=== PATIENT | female | born 1930 | race Caucasian/White ===

== ENCOUNTER 2017-11-10 07:29 | Emergency (ER) | payer OTHER ==
[~2017-11-10] VITALS: Ht 160 cm; Wt 66.9 kg
[~2017-11-10 07:29] MED LIST: ATIVAN1 MG PO; Ascorbic Acid,Ester- PO; BUSPAR5 MG PO; CELEBREX200 MG PO; Dulcolax PO; Dulcolax PR; ESCITALOPRAM OX10 MG PO; FLONASE16 G1 BOTH NARES; Folvite PO; LIDODERM 5% P1 PATCH TD; LISINOPRIL10 MG PO; Levothroid,Synthroid PO; Lovenox SC; MIRALAX17 GM PO; Milk Of Magnesia,MOM PO; NIFEREX-1501 CAPSULE PO; OMEPRAZOLE40 M1 PO; PRAVASTATIN SOD40 MG PO; Protonix PO; SYNTHROID88 MCG PO; Senokot S,Pericolace PO; TYLENOL REGULA325 MG PO; Theragran PO; Tums,OsCal PO; Vitamin D PO; Zestril,Prinivil PO; Zocor PO
[2017-11-10 11:54] VITALS: BP 152/58
== END 2017-11-10 11:57 | disposition home or self-care (01) ==
LOC: EME 07:29
DX: S00.93XA Contusion of unspecified part of head, initial encounter (principal); W18.30XA Fall on same level, unspecified, initial encounter; Y92.099 Unspecified place in other non-institutional residence as the place of occurrence of the external cause; I10 Essential (primary) hypertension; K21.9 Gastro-esophageal reflux disease without esophagitis; F32.9 Major depressive disorder, single episode, unspecified; E03.9 Hypothyroidism, unspecified; F41.9 Anxiety disorder, unspecified
CPT/HCPCS: 70450; 99281; 99284

== ENCOUNTER 2018-05-02 12:08 | Day surgery (SDC) | payer OTHER ==
[~2018-05-02] VITALS: Ht 160 cm; Wt 85.2 kg
[~2018-05-02 12:08] MED LIST changes: +BUSPAR10 MG PO; +CALCITONIN-SAL3.8 ML ALT NARES; +CALCIUM 600 +1 EAC2 PO; +IRON325 M1 PO; +LASIX20 MG PO; +LISINOPRIL-HCT1 EACH PO; +LOVENOX30 MG/0.3 SC; +TYLENOL EXTRA500 MG PO; +ULTRAM50 MG PO; +WELLBUTRIN SR100 MG PO; +[UNRECOGNIZED DRUG - OTHER] TP
[2018-05-02 13:31] VITALS: BP 124/66
[2018-05-02 17:07] VITALS: BP 146/70
[2018-05-02 18:00] VITALS: BP 126/60
[2018-05-02 18:30] VITALS: BP 130/60
== END 2018-05-02 18:55 | disposition home or self-care (01) ==
LOC: SDC 12:08
PROC: 0QSG04Z Reposition Right Tibia with Internal Fixation Device, Open Approach (ICD-10-PCS; principal; 2018-05-02)
DX: S82.841A Displaced bimalleolar fracture of right lower leg, initial encounter for closed fracture (principal); W06.XXXA Fall from bed, initial encounter; I10 Essential (primary) hypertension; Z79.01 Long term (current) use of anticoagulants; Z88.2 Allergy status to sulfonamides; Z91.012 Allergy to eggs
CPT/HCPCS: 71045; 73610; 76000; 87641; 93005; C1713; J0131; J0690; J2405; J2795; J3010; S0020

== ENCOUNTER 2018-05-05 14:33 | Observation (INO) | payer OTHER ==
[~2018-05-05] VITALS: Ht 157.5 cm; Wt 70.6 kg
[2018-05-05 15:43] LABS: HEMATOCRIT 35.5 % (36.0-46.0); HEMOGLOBIN 11.6 G/DL (11.9-15.5); MCH 32.8 PG (29.0-34.0); MCHC 32.7 G/DL (30.0-36.0); MCV 100.3 FL (83-99); PLATELET COUNT 215 K/uL (156-360); RBC DIS.WIDTH-CV 13.2 % (11.8-14.6); RBC DIS.WIDTH-SD 48.9 % (39-53); RED BLOOD COUNT 3.54 M/uL (3.80-5.20); WHITE BLOOD COUNT 8.8 K/uL (4.1-10.2)
[2018-05-05 15:57] LABS: CHLORIDE 101 mEq/L (99-109); POTASSIUM 4.2 mEq/L (3.7-5.4); SODIUM 140 mEq/L (136-147)
[2018-05-05 15:59] LABS: GLUCOSE 123 mg/dL (70-99)
[2018-05-05 16:02] LABS: TROP-I INTERPRETATION NEGATIVE; TROPONIN-I 0.02 ng/mL (0.0-0.30)
[2018-05-05 16:03] LABS: CREATININE 1.5 mg/dL (0.6-1.3); GFR ESTIMATE (CALCULATED) 35 mL/min/
[2018-05-05 16:04] LABS: UREA NITROGEN (BUN) 47 mg/dL (9-23)
[2018-05-05 18:13] LABS: APPEARANCE SL.HAZY ((CLEAR)); BILIRUBIN NEGATIVE; BLOOD NEGATIVE; COLOR YELLOW ((YELLOW)); GLUCOSE (STRIP) NEGATIVE; KETONES NEGATIVE; LEUKOCYTES MODERATE; NITRITE NEGATIVE; PROTEIN (STRIP) NEGATIVE; SPECIFIC GRAVITY 1.023 (1.000-1.030); UROBILINOGEN 0.2 MG/DL (0.2-1.0)
[2018-05-05] MEDS ORDERED: FERROUS SULFAT325 MG PO (18:27)
[2018-05-05] MEDS ORDERED: LOVENOX30 MG/0.3 SC (18:33)
[2018-05-05 18:36] LABS: BACTERIA 1+ /HPF; EPITHELIAL CELLS 2+ /HPF; MUCUS TRACE /LPF; UCUL ADDED? NO; WHITE BLOOD CELLS 0-5 /HPF (0-5)
[2018-05-05 22:43] VITALS: BP 112/58
[2018-05-05 22:57] LABS: TROP-I INTERPRETATION NEGATIVE; TROPONIN-I 0.01 ng/mL (0.0-0.30)
[2018-05-06 03:55] VITALS: BP 92/53
[2018-05-06 05:38] LABS: HEMATOCRIT 30.5 % (36.0-46.0); HEMOGLOBIN 9.7 G/DL (11.9-15.5); MCHC 31.8 G/DL (30.0-36.0); MCV 100.7 FL (83-99); PLATELET COUNT 192 K/uL (156-360); RBC DIS.WIDTH-CV 13.3 % (11.8-14.6); RED BLOOD COUNT 3.03 M/uL (3.80-5.20); WHITE BLOOD COUNT 7.7 K/uL (4.1-10.2)
[2018-05-06 05:49] LABS: TROP-I INTERPRETATION NEGATIVE; TROPONIN-I < 0.01 ng/mL (0.0-0.30)
[2018-05-06 05:53] LABS: CHLORIDE 105 MEQ/L (99-109); CREATININE 1.2 MG/DL (0.6-1.3); GFR ESTIMATE (CALCULATED) 45 mL/min/; GLUCOSE 121 mg/dL (70-99); SODIUM 141 MEQ/L (136-147); UREA NITROGEN (BUN) 41 mg/dL (9-23)
[2018-05-06 11:13] VITALS: BP 113/57
[2018-05-06 15:20] VITALS: BP 116/60
[2018-05-06 20:15] VITALS: BP 100/56
== END 2018-05-06 20:19 | disposition home or self-care (01) ==
LOC: EME 14:33 → EDOF 18:36 → ENRESERV 18:53 → 4SOUTH 21:54
PROVIDERS: Emergency Medicine; Hospitalist
DX: N17.9 Acute kidney failure, unspecified (principal); D64.9 Anemia, unspecified; R79.1 Abnormal coagulation profile; E86.0 Dehydration; N39.0 Urinary tract infection, site not specified; Z98.890 Other specified postprocedural states; S82.841D Displaced bimalleolar fracture of right lower leg, subsequent encounter for closed fracture with routine healing; K44.9 Diaphragmatic hernia without obstruction or gangrene; I10 Essential (primary) hypertension; E78.5 Hyperlipidemia, unspecified; F41.9 Anxiety disorder, unspecified; E03.9 Hypothyroidism, unspecified; K21.9 Gastro-esophageal reflux disease without esophagitis; R91.8 Other nonspecific abnormal finding of lung field; R26.89 Other abnormalities of gait and mobility; Z79.82 Long term (current) use of aspirin; Z79.01 Long term (current) use of anticoagulants; M19.90 Unspecified osteoarthritis, unspecified site; Z82.49 Family history of ischemic heart disease and other diseases of the circulatory system; Z91.012 Allergy to eggs
CPT/HCPCS: 71045; 71250; 78582; 80048; 81003; 84484; 85027; 85379; 93005; 99281; 99285; A9539; A9540; G0378; J1650; J7030

== ENCOUNTER 2018-05-10 10:43 | Inpatient (IN) | payer OTHER ==
[~2018-05-10] VITALS: Ht 167.6 cm; Wt 75.6 kg
[~2018-05-10 10:43] MED LIST changes: +FERROUS SULFAT325 MG PO
[2018-05-10 13:15] LABS: BASOPHIL (%) 0.4 % (0-1); BASOPHIL COUNT 0.1 K/uL (0-0.1); EOSINOPHIL (%) 0.9 % (0-5); EOSINOPHIL COUNT 0.1 K/uL (0-0.3); HEMATOCRIT 32.6 % (36.0-46.0); HEMOGLOBIN 10.6 G/DL (11.9-15.5); IMMATURE GRANULOCYTE (%) 0.9 % (0.0-0.7); LYMPHOCYTE (%) 10.3 % (15-42); LYMPHOCYTE COUNT 1.3 K/uL (1.0-2.8); MCH 32.5 PG (29.0-34.0); MCHC 32.5 G/DL (30.0-36.0); MONOCYTE (%) 7.7 % (3-12); NEUTROPHIL (%) 79.8 % (45-76); NEUTROPHIL COUNT 10.3 K/uL (1.8-6.4); RBC DIS.WIDTH-CV 13.6 % (11.8-14.6); RED BLOOD COUNT 3.26 M/uL (3.80-5.20); WHITE BLOOD COUNT 12.9 K/uL (4.1-10.2)
[2018-05-10 13:17] LABS: PLATELET COUNT 260 K/uL (156-360)
[2018-05-10 13:28] LABS: CHLORIDE 102 mEq/L (99-109); SODIUM 138 mEq/L (136-147)
[2018-05-10 13:29] LABS: GLUCOSE 109 mg/dL (70-99)
[2018-05-10 13:33] LABS: CREATININE 3.2 mg/dL (0.6-1.3); GFR ESTIMATE (CALCULATED) 15 mL/min/
[2018-05-10 13:34] LABS: UREA NITROGEN (BUN) 73 mg/dL (9-23)
[2018-05-10 14:46] LABS: APPEARANCE CLEAR ((CLEAR)); BILIRUBIN NEGATIVE; BLOOD SMALL; COLOR YELLOW ((YELLOW)); GLUCOSE (STRIP) NEGATIVE; KETONES NEGATIVE; LEUKOCYTES NEGATIVE; NITRITE NEGATIVE; PROTEIN (STRIP) NEGATIVE; SPECIFIC GRAVITY 1.019 (1.000-1.030); UROBILINOGEN 0.2 MG/DL (0.2-1.0)
[2018-05-10 14:51] LABS: BACTERIA RARE /HPF; EPITHELIAL CELLS RARE /HPF; HYALINE CASTS 0-5 /LPF; MUCUS TRACE /LPF; UCUL ADDED? NO; WHITE BLOOD CELLS 0-5 /HPF (0-5)
[2018-05-10] MEDS ORDERED: ONDANSETRON ODT4 MG PO (18:48)
[2018-05-10 19:51] LABS: URIC ACID 9.9 mg/dL (3.1-9.2)
[2018-05-10 21:03] VITALS: BP 102/51
[2018-05-10 23:42] VITALS: BP 124/54
[2018-05-11 05:13] VITALS: BP 101/49
[2018-05-11 07:10] LABS: HEMATOCRIT 27.2 % (36.0-46.0); MCH 31.7 PG (29.0-34.0); MCHC 31.3 G/DL (30.0-36.0); MCV 101.5 FL (83-99); PLATELET COUNT 232 K/uL (156-360); RBC DIS.WIDTH-CV 13.6 % (11.8-14.6); RBC DIS.WIDTH-SD 50.5 % (39-53); RED BLOOD COUNT 2.68 M/uL (3.80-5.20); WHITE BLOOD COUNT 6.9 K/uL (4.1-10.2)
[2018-05-11 07:16] VITALS: BP 97/50
[2018-05-11 07:18] LABS: HEMOGLOBIN 8.5 G/DL (11.9-15.5)
[2018-05-11 07:24] LABS: ALBUMIN 2.5 G/DL (3.2-4.8); CHLORIDE 110 MEQ/L (99-109); CREATININE 2.1 MG/DL (0.6-1.3); GFR ESTIMATE (CALCULATED) 24 mL/min/; GLUCOSE 94 mg/dL (70-99); POTASSIUM 4.4 MEQ/L (3.7-5.4); SODIUM 139 MEQ/L (136-147); UREA NITROGEN (BUN) 60 mg/dL (9-23)
[2018-05-11 11:45] VITALS: BP 103/58
[2018-05-11 14:50] LABS: INTER. NORMALIZED RATIO 1.1
[2018-05-11 14:53] LABS: PTT 63.7 SEC (25-37)
[2018-05-11 19:49] LABS: INTER. NORMALIZED RATIO 1.1
[2018-05-11 19:52] LABS: PTT 60.7 SEC (25-37)
[2018-05-11 23:27] VITALS: BP 112/57
[2018-05-12 02:25] LABS: HEMATOCRIT 27.2 % (36.0-46.0); HEMOGLOBIN 8.8 G/DL (11.9-15.5); MCH 32.8 PG (29.0-34.0); MCHC 32.4 G/DL (30.0-36.0); MCV 101.5 FL (83-99); PLATELET COUNT 237 K/uL (156-360); RBC DIS.WIDTH-CV 13.5 % (11.8-14.6); RBC DIS.WIDTH-SD 50.4 % (39-53); RED BLOOD COUNT 2.68 M/uL (3.80-5.20); WHITE BLOOD COUNT 5.9 K/uL (4.1-10.2)
[2018-05-12 04:12] VITALS: BP 116/55
[2018-05-12 05:55] LABS: IRON 35 MCG/DL (35-150); TRANSFERRIN (TIBC) 132.9 mg/dL (215-380); TRANSFERRIN SATUR. 26 % (20-55)
[2018-05-12 08:03] LABS: FERRITIN 450 NG/ML (10-291)
[2018-05-12 08:10] LABS: CHLORIDE 113 MEQ/L (99-109); CREATININE 1.2 MG/DL (0.6-1.3); GFR ESTIMATE (CALCULATED) 45 mL/min/; GLUCOSE 89 mg/dL (70-99); POTASSIUM 4.4 MEQ/L (3.7-5.4); SODIUM 143 MEQ/L (136-147); UREA NITROGEN (BUN) 47 mg/dL (9-23)
[2018-05-12 08:40] VITALS: BP 122/58
[2018-05-12 12:50] VITALS: BP 119/58
[2018-05-12 16:07] VITALS: BP 127/58
[2018-05-12 19:22] VITALS: BP 116/55
[2018-05-12 23:14] VITALS: BP 121/74
[2018-05-13 03:10] VITALS: BP 120/60
[2018-05-13 06:59] LABS: HEMOGLOBIN 9.5 G/DL (11.9-15.5); MCH 31.7 PG (29.0-34.0); MCHC 31.7 G/DL (30.0-36.0); PLATELET COUNT 300 K/uL (156-360); RBC DIS.WIDTH-CV 13.3 % (11.8-14.6); RBC DIS.WIDTH-SD 48.6 % (39-53); WHITE BLOOD COUNT 8.1 K/uL (4.1-10.2)
[2018-05-13 07:23] VITALS: BP 124/58
[2018-05-13 07:29] LABS: CHLORIDE 109 MEQ/L (99-109); CREATININE 0.9 MG/DL (0.6-1.3); GFR ESTIMATE (CALCULATED) > 59 mL/min/; GLUCOSE 127 mg/dL (70-99); POTASSIUM 4.7 MEQ/L (3.7-5.4); SODIUM 142 MEQ/L (136-147); UREA NITROGEN (BUN) 32 mg/dL (9-23)
[2018-05-13 09:37] LABS: FOLIC ACID (FOLATE) 16.5 NG/ML (5.0-22.0)
[2018-05-13 11:40] VITALS: BP 112/55
[2018-05-13 16:46] VITALS: BP 107/53
[2018-05-13 20:30] VITALS: BP 109/58
[2018-05-14 00:10] VITALS: BP 111/58
[2018-05-14 03:49] VITALS: BP 103/51
[2018-05-14 07:25] VITALS: BP 96/53
[2018-05-14 11:03] VITALS: BP 129/60
[2018-05-14 16:26] VITALS: BP 121/58
[2018-05-15] VITALS (7 sets, daily range): BP systolic 104–141; BP diastolic 55–68
[2018-05-15 05:54] LABS: HEMATOCRIT 26.1 % (36.0-46.0); HEMOGLOBIN 8.5 G/DL (11.9-15.5); MCH 32.3 PG (29.0-34.0); MCHC 32.6 G/DL (30.0-36.0); MCV 99.2 FL (83-99); PLATELET COUNT 261 K/uL (156-360); RBC DIS.WIDTH-CV 13.4 % (11.8-14.6); RBC DIS.WIDTH-SD 48.8 % (39-53); RED BLOOD COUNT 2.63 M/uL (3.80-5.20); WHITE BLOOD COUNT 8.1 K/uL (4.1-10.2)
[2018-05-15 13:35] LABS: INTER. NORMALIZED RATIO 1.4
[2018-05-15 13:38] LABS: PTT 29.6 SEC (25-37)
[2018-05-16 03:39] VITALS: BP 119/66
[2018-05-16 07:05] LABS: HEMATOCRIT 27.3 % (36.0-46.0); HEMOGLOBIN 8.6 G/DL (11.9-15.5); MCH 31.6 PG (29.0-34.0); MCHC 31.5 G/DL (30.0-36.0); MCV 100.4 FL (83-99); PLATELET COUNT 261 K/uL (156-360); RBC DIS.WIDTH-CV 13.7 % (11.8-14.6); RBC DIS.WIDTH-SD 50.1 % (39-53); RED BLOOD COUNT 2.72 M/uL (3.80-5.20); WHITE BLOOD COUNT 8.1 K/uL (4.1-10.2)
[2018-05-16 07:19] VITALS: BP 116/53
[2018-05-16 07:40] LABS: CHLORIDE 109 MEQ/L (99-109); CREATININE 0.6 MG/DL (0.6-1.3); GFR ESTIMATE (CALCULATED) > 59 mL/min/; GLUCOSE 119 mg/dL (70-99); POTASSIUM 4.1 MEQ/L (3.7-5.4); SODIUM 142 MEQ/L (136-147); UREA NITROGEN (BUN) 13 mg/dL (9-23)
[2018-05-16 11:10] VITALS: BP 121/59
[2018-05-16 14:56] VITALS: BP 113/55
[2018-05-16 19:11] VITALS: BP 127/63
[2018-05-16 23:08] VITALS: BP 133/64
[2018-05-17 03:28] VITALS: BP 131/72
[2018-05-17 06:43] LABS: HEMATOCRIT 26.8 % (36.0-46.0); HEMOGLOBIN 8.3 G/DL (11.9-15.5); MCH 31.3 PG (29.0-34.0); MCV 101.1 FL (83-99); PLATELET COUNT 236 K/uL (156-360); RBC DIS.WIDTH-CV 13.7 % (11.8-14.6); RBC DIS.WIDTH-SD 50.7 % (39-53); RED BLOOD COUNT 2.65 M/uL (3.80-5.20); WHITE BLOOD COUNT 5.7 K/uL (4.1-10.2)
[2018-05-17 07:26] VITALS: BP 122/57
[2018-05-17 11:07] VITALS: BP 141/66
[2018-05-17 15:58] VITALS: BP 125/67
[2018-05-17 19:42] VITALS: BP 119/58
[2018-05-17 23:32] VITALS: BP 129/73
[2018-05-18 04:25] VITALS: BP 122/60
[2018-05-18 05:55] LABS: HEMATOCRIT 26.8 % (36.0-46.0); HEMOGLOBIN 8.5 G/DL (11.9-15.5); MCH 31.5 PG (29.0-34.0); MCHC 31.7 G/DL (30.0-36.0); MCV 99.3 FL (83-99); PLATELET COUNT 299 K/uL (156-360); RBC DIS.WIDTH-CV 13.7 % (11.8-14.6); WHITE BLOOD COUNT 6.7 K/uL (4.1-10.2)
[2018-05-18 06:22] LABS: CHLORIDE 108 MEQ/L (99-109); CREATININE 0.6 MG/DL (0.6-1.3); GFR ESTIMATE (CALCULATED) > 59 mL/min/; GLUCOSE 129 mg/dL (70-99); POTASSIUM 3.8 MEQ/L (3.7-5.4); SODIUM 142 MEQ/L (136-147); UREA NITROGEN (BUN) 13 mg/dL (9-23)
[2018-05-18 08:21] VITALS: BP 110/53
[2018-05-18 11:05] VITALS: BP 142/68
[2018-05-18] MEDS ORDERED: DOCUSATE SODIU100 MG PO (11:45)
[2018-05-18] MEDS ORDERED: SENNA LAX8.6 MG PO (11:46)
[2018-05-18] MEDS ORDERED: ELIQUIS5 MG PO (11:47)
[2018-05-18] MEDS ORDERED: ULTRAM50 MG PO (11:48)
== END 2018-05-18 13:40 | DRG 683 ==
LOC: EME 10:43 → 3EAST 18:48 → EDOF 18:48 → ENRESERV 18:53 → CANRESERV 18:53 → ENRESERV 18:54 → 3EAST 20:27
PROVIDERS: Family Medicine; Hospitalist; Specialist
DX: N17.9 Acute kidney failure, unspecified (principal); N10 Acute pyelonephritis; I82.422 Acute embolism and thrombosis of left iliac vein; I10 Essential (primary) hypertension; F32.9 Major depressive disorder, single episode, unspecified; I95.9 Hypotension, unspecified; D41.9 Neoplasm of uncertain behavior of unspecified urinary organ; E03.9 Hypothyroidism, unspecified; K21.9 Gastro-esophageal reflux disease without esophagitis; D64.9 Anemia, unspecified; K44.9 Diaphragmatic hernia without obstruction or gangrene; J98.11 Atelectasis; F41.9 Anxiety disorder, unspecified; K59.00 Constipation, unspecified; E86.0 Dehydration; Z66 Do not resuscitate; Z86.718 Personal history of other venous thrombosis and embolism; K56.41 Fecal impaction; M85.80 Other specified disorders of bone density and structure, unspecified site; S82.891D Other fracture of right lower leg, subsequent encounter for closed fracture with routine healing; M19.90 Unspecified osteoarthritis, unspecified site; Z79.01 Long term (current) use of anticoagulants; E86.1 Hypovolemia; R13.10 Dysphagia, unspecified
CPT/HCPCS: 36415; 71045; 71046; 74018; 74019; 74176; 80048; 80048 91; 80069; 81003; 82436; 82607; 82728; 82746; 82948; 83540; 83605; 84133; 84300; 84466; 84550; 85025; 85027; 85610; 85730; 87040; 92526 GN; 92610 GN; 93970; 94799; 97530 GP; 99281; 99285; C1755; J7030; J7042